=== PATIENT | female | born 1975 | race Caucasian/White ===

== ENCOUNTER → 2020-03-14 11:21 | Outpatient (CLI) | payer BC, SELFPAY | PROVIDERS: Visit Provider Physician Assistant | DX: N39.0 Urinary tract infection, site not specified (principal); R31.9 Hematuria, unspecified | CPT/HCPCS: 87077; 87086; 87186 ==

== ENCOUNTER 2020-06-11 18:13 | Emergency (ER) | payer BC, SELFPAY ==
[2020-06-11 18:17] VITALS: BP 139/96; PULSE 96; RESP 18; TEMP 36.8; O2SAT 97; BMI 52.9
[2020-06-11 19:11] LABS: Add Manual Diff / Slide Review NO; Basophils Absolute Auto 100 /uL (0-100); Basophils Percent Auto 0.6 % (0-2); Eosinophils Absolute Auto 200 /uL (0-450); Eosinophils Percent Auto 2.1 % (2-4); Hematocrit 38.7 % (36-46); Hemoglobin 13.1 g/dL (12.0-16.0); Lymphocytes Absolute Auto 2100 /uL (1100-4500); Lymphocytes Percent Auto 21.1 % (25-40); Mean Corpuscular HGB Conc 33.9 % (30-36); Mean Corpuscular Volume 85.5 fL (80-100); Monocytes Absolute Auto 600 /uL (0-900); Monocytes Percent Auto 6.2 % (3-14); Neutrophils Absolute Auto 7000 /uL (1500-7000); Platelet Count 250 X10^3/uL (150-400); Red Blood Cell Count 4.53 X10^6/uL (4.0-5.2); Red Cell Distribution Width 14.7 % (11.6-14.8)
[2020-06-11 19:18] LABS: Prothrombin Time 11.1 SECONDS (10.1-12.7)
[2020-06-11 19:21] LABS: PTT Partial Thromboplastin Tim 26 SECONDS (26.4-36.2)
[2020-06-11 19:25] LABS: Alanine Aminotransferase 34 IU/L (<35); Albumin 4.2 g/dL (3.5-5.0); Albumin Globulin Ratio 1.3 (1.0-2.8); Alkaline Phosphatase 86 U/L (38-126); Aspartate Aminotransferase 34 IU/L (14-36); BUN Creatinine Ratio 16.7 (6-22); Bilirubin Total 1.2 mg/dL (0.2-1.3); Blood Urea Nitrogen 14 mg/dL (7-17); Calcium 9.1 mg/dL (8.4-10.2); Carbon Dioxide 27 mmol/L (22-32); Chloride 103 mmol/L (98-107); Estimated Glomerular Filt Rate > 60.0 mL/min (>60); Globulin 3.2 g/dL (1.7-4.1); Glucose 106 mg/dL (70-100); HEMOLYSIS 62 (0-50); Lipase 155 U/L (23-300); Potassium 3.9 mmol/L (3.4-5.1); Sodium 137 mmol/L (137-145); Total Protein 7.4 g/dL (6.3-8.2)
[2020-06-11 19:26] LABS: Pregnancy Test Urine Negative (Negative)
[2020-06-11 19:35] LABS: RBC Urine 5-10/HPF (0-5/HPF); WBC Urine 5-10/HPF (0-5/HPF)
[2020-06-11 19:36] LABS: Bacteria Urine Many (>30); Culture Indicated Urine Specimen Cultured
--- NOTE | 2020-06-11 19:43 | ED.FEMALEGU ---
HPI - Female Genitourinary General Chief complaint: Urogenital-Female Stated complaint: BLOOD IN URINE Time Seen by Provider: 06/11/20 19:43 Source: patient Mode of arrival: Ambulatory Limitations: no limitations History of Present Illness HPI Narrative: The patient developed left lower abdominal pain about 2.5 days ago. She has hematuria, no dysuria. She has no associated back pain. She has no fever chills, nausea or vomiting. She has no history of bowel problems. She has no hematochezia. She is premenopausal. She has no vaginal discharge or bleeding. She had 1 UTI March 2020, but she does not have chronic UTIs. She has no history of kidney stones. Related Data Home Medications Medication Instructions Recorded Confirmed No Known Home Medications 06/11/20 06/11/20 Previous Rx's Medication Instructions Recorded sulfamethoxazole-trimethoprim 1 tab PO BID 7 Days #14 tab 06/11/20 Allergies Allergy/AdvReac Type Severity Reaction Status Date / Time cortisone Allergy Burning Verified 06/11/20 18:17 Review of Systems Constitutional Constitutional: Denies body ache(s), Denies chills, Denies fever(s) and Denies headache(s) ENT Ears, Nose, Mouth, and Throat: Denies headache(s) Cardiovascular Cardiovascular: Denies chest pain, Denies rapid heart rate and Denies dyspnea Respiratory Respiratory: Denies cough and Denies dyspnea Gastrointestinal Gastrointestinal: Reports as per HPI, Reports abdominal pain, Denies change in bowel habits, Denies diarrhea, Denies nausea and Denies vomiting Genitourinary Genitourinary: Reports as per HPI Genitourinary: Reports as per HPI Musculoskeletal Musculoskeletal: Denies back pain Integumentary/Breasts Skin/Breast: Denies rash Neurologic Neurologic: Denies headache(s) Patient History Medical History Flank pain Hematuria No active medical problems Substance Use Type: does not use Exam Initial Vital Signs Initial Vital Signs: Vital Signs Temperature 98.2 F 06/11/20 18:17 Pulse Rate 96 H 06/11/20 18:17 Respiratory Rate 18 06/11/20 18:17 Blood Pressure 139/96 H 06/11/20 18:17 Pulse Oximetry 97 06/11/20 18:17 Const General: cooperative and well developed Nutritional Appearance: well nourished [facility] Head: normocephalic and atraumatic Resp Auscultation: clear to auscultation bilaterally Cardio Rate: regular rate Rhythm: regular rhythm Heart Sounds: S1 normal, S2 normal, no click, no gallops, no murmurs and no rubs Pulses: normal peripheral pulses GI Other: LLQ tenderness. No distension. No guarding rebound. No masses. Back/Spine/Pelvis Back: No CVA tenderness Skin General: no rashes or lesions noted, No jaundice and No petechiae Neuro General: patient alert, patient oriented x3, gait normal and no focal motor deficits Speech: speech normal Course Course Course Narrative: The urine shows nitrates, along was wild leukocytes. Evaluation is not suggesting kidney stone. She will be discharged on . She is advised to return if symptoms escalate. Orders Ordered: ED Orders 06/11/20 18:58 Complete Blood Count AUTO DIFF Stat Comprehensive Metabolic Panel Stat Lipase Stat Partial Thromboplastin Time Stat Prothrombin Time INR Stat 06/11/20 19:04 Test Urine Stat Urine Culture Stat Urine Microscopic Stat Discontinued Medications Trimethoprim/Sulfamethoxazole (Trimeth/Sulfa 160/800 (Ds) Tablet) 1 tab PO NOW ONE Stop: 06/11/20 19:55 Vital Signs Vital signs: Vital Signs - 8 hr 06/11/20 18:17 Temperature 98.2 F Pulse Rate 96 H Respiratory Rate 18 Blood Pressure 139/96 H Pulse Oximetry 97 MDM - Female Genitourinary Lab Data Result diagrams: 06/11/20 18:58 06/11/20 18:58 Labs: Lab Results 06/11/20 06/11/20 06/11/20 Range/Units 18:58 18:58 18:58 WBC 10.0 (4.5-11.0) X10^3/uL RBC 4.53 (4.0-5.2) X10^6/uL Hgb 13.1 (12.0-16.0) g/dL Hct 38.7 (36-46) % MCV 85.5 (80-100) fL MCH 29.0 (26-34) PG MCHC 33.9 (30-36) % RDW 14.7 (11.6-14.8) % Plt Count 250 (150-400) X10^3/uL Neut % (Auto) 70.0 (50-75) % Lymph % (Auto) 21.1 L (25-40) % Hickman % (Auto) 6.2 (3-14) % Eos % (Auto) 2.1 (2-4) % Baso % (Auto) 0.6 (0-2) % Neut # (Auto) 7000 (7647-0727) /uL Lymph # (Auto) 2100 (0596-7832) /uL Hickman # (Auto) 600 (0-900) /uL Eos # (Auto) 200 (0-450) /uL Baso # (Auto) 100 (0-100) /uL PT 11.1 (10.1-12.7) SECONDS INR 1.0 (0.9-1.3) APTT 26 L (26.4-36.2) SECONDS Sodium 137 (137-145) mmol/L Potassium 3.9 (3.4-5.1) mmol/L Chloride 103 (98-107) mmol/L Carbon Dioxide 27 (22-32) mmol/L BUN 14 (7-17) mg/dL Creatinine 0.84 (0.52-1.04) mg/dL Estimated GFR > 60.0 (>60) mL/min BUN/Creatinine Ratio 16.7 (6-22) Glucose 106 H (70-100) mg/dL Calcium 9.1 (8.4-10.2) mg/dL Total Bilirubin 1.2 (0.2-1.3) mg/dL AST 34 (14-36) IU/L ALT 34 (<35) IU/L Alkaline Phosphatase 86 (38-126) U/L Total Protein 7.4 (6.3-8.2) g/dL Albumin 4.2 (3.5-5.0) g/dL Globulin 3.2 (1.7-4.1) g/dL Albumin/Globulin Ratio 1.3 (1.0-2.8) Lipase 155 (23-300) U/L Urine RBC (0-5/HPF) Urine WBC (0-5/HPF) Urine Bacteria (None) Ur Culture Indicated? Urine Test (Negative) 06/11/20 06/11/20 Range/Units 19:04 19:04 WBC (4.5-11.0) X10^3/uL RBC (4.0-5.2) X10^6/uL Hgb (12.0-16.0) g/dL Hct (36-46) % MCV (80-100) fL MCH (26-34) PG MCHC (30-36) % RDW (11.6-14.8) % Plt Count (150-400) X10^3/uL Neut % (Auto) (50-75) % Lymph % (Auto) (25-40) % Hickman % (Auto) (3-14) % Eos % (Auto) (2-4) % Baso % (Auto) (0-2) % Neut # (Auto) (9086-2934) /uL Lymph # (Auto) (8261-3674) /uL Hickman # (Auto) (0-900) /uL Eos # (Auto) (0-450) /uL Baso # (Auto) (0-100) /uL PT (10.1-12.7) SECONDS INR (0.9-1.3) APTT (26.4-36.2) SECONDS Sodium (137-145) mmol/L Potassium (3.4-5.1) mmol/L Chloride (98-107) mmol/L Carbon Dioxide (22-32) mmol/L BUN (7-17) mg/dL Creatinine (0.52-1.04) mg/dL Estimated GFR (>60) mL/min BUN/Creatinine Ratio (6-22) Glucose (70-100) mg/dL Calcium (8.4-10.2) mg/dL Total Bilirubin (0.2-1.3) mg/dL AST (14-36) IU/L ALT (<35) IU/L Alkaline Phosphatase (38-126) U/L Total Protein (6.3-8.2) g/dL Albumin (3.5-5.0) g/dL Globulin (1.7-4.1) g/dL Albumin/Globulin Ratio (1.0-2.8) Lipase (23-300) U/L Urine RBC 5-10/hpf H (0-5/HPF) Urine WBC 5-10/hpf H (0-5/HPF) Urine Bacteria Many (>30) H (None) Ur Culture Indicated? Specimen cultured Urine Test Negative (Negative) Discharge Plan Departure Patient Disposition: Home Clinical Impression: Acute hemorrhagic cystitis Instructions: DI for Urinary Tract Infection (UTI) Activity Restrictions/Additional Instructions: Septra DS 2 times daily for 1 week. Your prescription has been forwarded to [facility] pharmacy in [place]. Be sure you are drinking plenty fluids at all times. Consider drinking cranberry juice daily, as we discussed. Return here for increasing pain, or fever. Consider recheck with your doctor in about 2 weeks to assure the urine has cleared. Prescriptions: New sulfamethoxazole-trimethoprim 800-160 mg tablet 1 tab PO BID 7 Days Qty: 14 RF: 0 No Action No Known Home Medications RF: 0
[2020-06-11] MEDS: TRIMETH/SULFA 160/800 (DS) TABLET 1 TAB PO (20:07)
[2020-06-11 20:19] VITALS: BP 141/80; PULSE 82; RESP 20; O2SAT 97
== END 2020-06-11 20:20 | disposition home or self-care (01) ==
PROVIDERS: Emergency Medicine; Emergency Provider Emergency Medicine
DX: N30.01 Acute cystitis with hematuria (principal)
CPT/HCPCS: 36415; 80053; 81015; 81025; 83690; 85025; 85610; 85730; 87077; 87086; 87186; 99283